=== PATIENT | female | born 1940 | race Caucasian/White ===

== ENCOUNTER 2018-07-27 15:28 | Emergency (ER) | payer MEDICARE ==
--- NOTE | 2018-07-27 15:57 | ED ---
Adult Trauma - HPI Summary HPI Summary: A 77 y/o female accompanied by her presents to the ED c/o right hip pain s/p accident. As per triage, "Right hip pain. Pt states she was unloading presents when she turned and began having hip pain. No fall". According to the patient, she was walking packages to her daughters house when she accidentally twisted her hip just right around noon. She denies any fall and thinks she twisted it out of place. She has no other injuries at this time. She can walk, but it is painful. Stooping over during ambulating, the pain is not as bad. No prior history with her hip. - History of Current Complaint Chief Complaint: EDHipPelvisInjury Stated Complaint: HIP PAIN Time Seen by Provider: 07/27/18 15:44 Hx Obtained From: Patient Mechanism of Injury: Twisted Ambulatory at the Scene: No Loss of Consciousness: no loss of consciousness Onset/Duration: Started Hours Ago, Still Present Onset of Pain: Immediate Onset Severity: Severe Current Severity: Severe Pain Intensity: 8 Pain Scale Used: 0-10 Numeric Location: Other - RIGHT HIP Aggravating Factor(s): Movement Alleviating Factor(s): Nothing Associated Signs & Symptoms: Positive: Negative - Allergy/Home Medications Allergies/Adverse Reactions: Allergies Allergy/AdvReac Type Severity Reaction Status Date / Time No Known Allergies Allergy Verified 07/27/18 15:34 PMH/Surg Hx/FS Hx/Imm Hx Endocrine/Hematology History: Denies: Hx Diabetes Cardiovascular History: Reports: Hx Hypertension Respiratory History: Denies: Hx Asthma - Surgical History Surgery Procedure, Year, and Place: EYEBROW LIFT Infectious Disease History: No Infectious Disease History: Denies: Traveled Outside the [place] in Last 30 Days - Family History Known Family History: Negative: Hypertension, Diabetes - Social History Alcohol Use: None Hx Substance Use: No Substance Use Type: Reports: None Hx Tobacco Use: No Smoking Status (MU): Never Smoked Tobacco Review of Systems Negative: Fever Positive: Other - POSITIVE: RIGHT HIP PAIN All Other Systems Reviewed And Are Negative: Yes Physical Exam - Summary Physical Exam Summary: Appearance: Well-appearing, Well-nourished, lying in bed comfortable Skin: Warm, dry, no obvious rash Eyes: sclera anicteric, no conjunctival pallor ENT: mucous membranes moist Neck: deferred Respiratory: No signs of respiratory distress Cardiovascular: Appears well perfused, pulses are nml Abdomen: deferred Musculoskeletal: Pain from the point of hip posteriorly to the front of buttock Neurological: Awake and alert, mentation is normal, speech is fluent and appropriate Psychiatric: affect is normal, does not appear anxious or depressed Triage Information Reviewed: Yes Vital Signs On Initial Exam: Initial Vitals Temp Pulse Resp BP Pulse Ox 98 F 89 18 211/82 97 07/27/18 15:31 07/27/18 15:31 07/27/18 15:31 07/27/18 15:31 07/27/18 15:31 Vital Signs Reviewed: Yes Diagnostics - Vital Signs Vital Signs Temp Pulse Resp BP Pulse Ox 07/27/18 15:31 98 F 89 18 211/82 97 - Laboratory Lab Statement: Any lab studies that have been ordered have been reviewed, and results considered in the medical decision making process. - Radiology HIP XR Radiology Interpretation Completed By: Radiologist Summary of Radiographic Findings: No fracture of the right hip or pelvis is noted. ED PHYSICIAN REVIEWED THIS RADIOLOGY REPORT. Adult Trauma Course/Dx - Course Course Of Treatment: A 77 y/o female accompanied by her presents to the ED c/o right hip pain s/p accident. According to the patient, she was walking packages to her daughters house when she accidentally twisted her hip just right around noon. She denies any fall and thinks she twisted it out of place. She has no other injuries at this time. She can walk, but it is painful. Stooping over during ambulating, the pain is not as bad. No prior history with her hip. Physical examination findings significant for pain from the point of hip posteriorly to the front of buttock. A Hip XR revealed no fracture of the right hip or pelvis is noted. No laboratory scans were done. In the ED course, the patient received no medications. Patient will be discharged with a diagnosis of hip sprain. Patient is to follow up with primary care provider in one week. Patient is to return to ED for any new or worsening symptoms. Patient is agreeable with this plan. - Diagnoses Provider Diagnoses: Hip sprain Discharge - Sign-Out/Discharge Documenting (check all that apply): Patient Departure - DISCHARGE - Discharge Plan Condition: Good Disposition: HOME Patient Education Materials: Hip Sprain (ED) Referrals: Milton Hernandez MD [Primary Care Provider] - 1 Week (if not improving) Additional Instructions: FOLLOW UP WITH PRIMARY CARE PROVIDER IN 1 WEEK. RETURN TO THE ED FOR ANY NEW OR WORSENING SYMPTOMS. - Billing Disposition and Condition Condition: GOOD Disposition: Home - Attestation Statements Document Initiated by Michael: Yes Documenting Scribe: Kevin Nazario Provider For Whom Michael is Documenting (Include Credential): Tom Bernal MD Scribe Attestation: Kevin Raymundo scribed for Tom Bernal MD on 07/30/18 at 0202. Scribe Documentation Reviewed: Yes Provider Attestation: The documentation as recorded by the Kevin sebastian accurately reflects the service I personally performed and the decisions made by me, Tom Bernal MD Status of Scribe Document: Viewed
== END 2018-07-27 16:47 | disposition home or self-care (01) ==
LOC: ED 15:28
DX: S73.101A Unspecified sprain of right hip, initial encounter (principal); M25.551 Pain in right hip; X58.XXXA Exposure to other specified factors, initial encounter; Y92.9 Unspecified place or not applicable
CPT/HCPCS: 99281